=== PATIENT | female | born 1935 | race Caucasian/White ===

== ENCOUNTER → 2017-08-07 | Outpatient (CLI) | payer MEDICARE ==
--- NOTE | 2017-08-12 10:39 | RSPPFT ---
DATE OF PROCEDURE: 08/07/17 COMMENTS: Spirometry with FVC of 2.0 predicted 2.1, FEV1 of 1.7 predicted 1.5, FEV1/FVC ratio 83% predicted 81%. Lung volumes are also within the predicted range as well as the DLCO. IMPRESSION: On the basis of the above, patient has flow values, lung volumes and DLCO within the predicted range.
== END ==
LOC: HRSP 09:53
PROVIDERS: ATTEND Internal Medicine Pulmonary Disease
DX: J84.10 Pulmonary fibrosis, unspecified (principal)
CPT/HCPCS: 36600; 82805; 94060; 94618; 94726; 94729

== ENCOUNTER 2017-10-18 08:19 | Inpatient (IN) ==
[2017-10-18] MEDS ORDERED: Morphine Sulfate Inj 2 MG/ML Vial IV.PUSH ONE (08:59)
[2017-10-18 09:06] LABS: Baso # (Auto) 0.1 th/mm3 (0.0-0.2); Baso % (Auto) 0.6 % (0.0-2.0); Eos % (Auto) 0.3 % (0.0-4.0); Hematocrit 34.8 % (35.0-46.0); Hemoglobin 11.9 gm/dL (11.6-15.3); Lymph # (Auto) 0.8 th/mm3 (1.0-4.8); Lymph % (Auto) 7.8 % (9.0-44.0); Mean Corpuscular HGB Conc 34.3 % (32.0-36.0); Mean Corpuscular Hemoglobin 30.2 pg (27.0-34.0); Mean Corpuscular Volume 88.2 fL (80.0-100.0); Mean Platelet Volume 6.7 fL (7.0-11.0); Mono # (Auto) 0.4 th/mm3 (0.0-0.9); Mono % (Auto) 4.5 % (0.0-8.0); Neut # (Auto) 8.7 th/mm3 (1.8-7.7); Neut % (Auto) 86.8 % (16.0-70.0); Platelet Count 492 th/mm3 (150-450); Red Blood Count 3.94 mil/mm3 (4.00-5.30)
[2017-10-18 09:14] LABS: Activated Partial Thrombo Time 26.8 sec (24.3-30.1); INR 1.1 Ratio; Prothrombin Time 11.1 sec (9.8-11.6)
[2017-10-18 09:28] LABS: Albumin 3.3 g/dL (3.4-5.0); Anion Gap 5 meq/L (5-15); Aspartate Aminotransferase 23 U/L (15-37); Blood Urea Nitrogen 10 mg/dL (7-18); Calcium 8.5 mg/dL (8.5-10.1); Carbon Dioxide 28.7 meq/L (21.0-32.0); Chloride 101 meq/L (98-107); Glomerular Filtration Rate 73 mL/min (>89); Glucose,Random 112 mg/dL (74-106); Potassium 3.6 meq/L (3.5-5.1); Sodium 135 meq/L (136-145)
[2017-10-18 09:29] LABS: Alanine Aminotransferase 17 U/L (10-53)
[2017-10-18 09:32] LABS: Alkaline Phosphatase 86 U/L (45-117)
--- NOTE | 2017-10-18 09:36 | XR ---
EXAM DATE: 10/18/2017 9:33 AM EDT AGE/SEX: 81 years / Female INDICATIONS: Pain in entire ankle from fall with twisting motion. CLINICAL DATA: This is the patient's initial encounter. Patient reports that signs and symptoms have been present for 1 day and indicates a pain score of 4/10. MEDICAL/SURGICAL HISTORY: None. None. COMPARISON: No prior exams available for comparison. FINDINGS: Bony structures are intact and in normal alignment. Joints are intact without dislocation or signifi cant arthropathy. Osseous density is normal. Soft tissues are unremarkable. No radiopaque foreign bodies seen. CONCLUSION: 1. No acute fracture or dislocation. Electronically signed by: Jose Dawson MD 10/18/2017 9:35 AM EDT
--- NOTE | 2017-10-18 09:46 | XR ---
EXAM DATE: 10/18/2017 9:39 AM EDT AGE/SEX: 81 years / Female INDICATIONS: Pain in hip joint region from fall. CLINICAL DATA: This is the patient's initial encounter. Patient reports that signs and symptoms have been present for 1 day and indicates a pain score of 10/10. MEDICAL/SURGICAL HISTORY: None. None. COMPARISON: [facility], HIP RIGHT W AP PELVIS 2V, 10/18/2017. . FINDINGS: There is trabecular disruption and foreshortening of the femoral head at the trochanteric junction. R emaining visualized portions of the femur are intact. No significant suprapatellar joint effusion. Mo derate degenerative changes with grossly anatomic relationship at the hip and knee joints. Soft tissu es are unremarkable. IMPRESSION: 1. Findings concerning for nondisplaced transcervical femoral neck fracture. Electronically signed by: Jose Dawson MD 10/18/2017 9:45 AM EDT
--- NOTE | 2017-10-18 09:54 | XR ---
EXAM DATE: 10/18/2017 9:40 AM EDT AGE/SEX: 81 years / Female INDICATIONS: Pain from fall in hip joint region. CLINICAL DATA: This is the patient's initial encounter. Patient reports that signs and symptoms have been present for 1 day and indicates a pain score of 10/10. MEDICAL/SURGICAL HISTORY: None. None. COMPARISON: No prior exams available for comparison. FINDINGS: Examination reveals a mildly angulated and impacted intertrochanteric fracture of the right hip. The femoral head remains intact and normally situated in the acetabulum. No displaced pelvic fractures ap preciated. The contralateral left hip is grossly unremarkable. CONCLUSION: Intertrochanteric fracture of the right hip Electronically signed by: Kieran Muse MD 10/18/2017 9:52 AM EDT
--- NOTE | 2017-10-18 11:15 | ED ---
HPI General Chief complaint: Fall Stated complaint: right hip pain Time Seen by Provider: 10/18/17 08:35 Source: patient Mode of arrival: EMS Limitations: no limitations History of Present Illness HPI narrative: Patient is an 81-year-old female who is brought in by EMS after a fall today. She has been sleeping in her car, because she feels it is safe for because she has an alarm on her car. She says that when she got out of the car this morning she tripped and she fell onto her right side. She denies hitting her head. She denies any loss of consciousness. She denies any other injuries. She complains of pain just to her right hip. She has not been able to walk since then. Movement makes the pain worse. She has not had anything for pain yet. Severity is moderate. Related Data Home Medications Medication Instructions Recorded Confirmed levothyroxine 75 mcg PO DAILY 10/18/17 10/18/17 Allergies Allergy/AdvReac Type Severity Reaction Status Date / Time amoxicillin Allergy Anaphylaxis Verified 10/18/17 08:29 Penicillins Allergy Rash Verified 10/18/17 08:29 Review of Systems Except as stated in HPI: all other systems reviewed are negative Constitutional Denies chills and Denies fever(s) ENT Denies dizziness Cardiovascular Denies chest pain and Denies dyspnea Respiratory Denies cough Gastrointestinal Denies nausea and Denies vomiting Musculoskeletal Denies myalgias Integumentary/Breasts Denies change in pigmentation and Denies lesions Neurologic Denies focal weakness [facility] Medical History Medical History Hypothyroid (Acute) Lung mass (Acute) Social History Social History Substance History: No History of Abuse Second Hand Smoke Exposure: No Smoking Status: Never smoker How Often Do You Have a Drink Containing Alcohol: Never Recent Travel in [facility] within the Last 8 Weeks: No Recent Out of Country Travel within the Last 8 Weeks: No Immunization History Tetanus Immunization: Unsure Hx Influenza Vaccine This Season: Yes Exam Narrative Exam Narrative: GENERAL: Awake alert, no acute distress. SKIN: Focused skin assessment warm/dry. No wounds. HEAD: Atraumatic. Normocephalic. EYES: Pupils equal and round. No scleral icterus. Extraocular movements intact. ENT: Mucous membranes pink and moist. NECK: Trachea midline. No JVD. CARDIOVASCULAR: Regular rate and rhythm. No murmur appreciated. RESPIRATORY: No accessory muscle use. Clear to auscultation. Breath sounds equal bilaterally. GASTROINTESTINAL: Abdomen soft, non-tender, nondistended. MUSCULOSKELETAL: For many of the right hip. Tenderness to palpation of the right hip. Pain with movement of the right hip. Pedal pulses intact. NEUROLOGICAL: Awake and alert. No obvious cranial nerve deficits. Motor grossly within normal limits. Normal speech. PSYCHIATRIC: Appropriate mood and affect; insight and judgment normal. Course Initial Documented Vital Signs Pulse Rate 65 10/18/17 08:30 Respiratory Rate 16 10/18/17 08:30 Blood Pressure 193/75 H 10/18/17 08:30 Pulse Oximetry 97 10/18/17 08:30 Last Documented Vital Signs Pulse Rate 65 10/18/17 08:30 Respiratory Rate 14 10/18/17 10:31 Blood Pressure 193/75 H 10/18/17 08:30 Pulse Oximetry 97 10/18/17 08:30 Medical Decision Making [facility] Narrative Medical decision making narrative: Patient is an 81-year-old female who comes in after a fall today. She complains of right hip pain. There is obvious deformity of the hip on exam. X-ray performed shows a fracture of the right hip. I spoke with Dr. Nunez of orthopedics who advises admission to medicine, keep the patient n.p.o. She was given pain medicine. She will be admitted for further management. Differential Diagnosis Differential Diagnosis: Hip fracture versus sprain versus pelvic fracture versus femur fracture Medical Records Medical records reviewed: Yes I reviewed the patient's medical records. Lab Data Lab results reviewed: Yes I reviewed the patient's lab results. Result diagrams: 10/18/17 08:36 10/18/17 08:36 Lab Results 10/18/17 10/18/17 10/18/17 Range/Units 08:36 08:36 08:36 WBC 10.0 (4.0-11.0) th/mm3 RBC 3.94 L (4.00-5.30) mil/mm3 Hgb 11.9 (11.6-15.3) gm/dL Hct 34.8 L (35.0-46.0) % MCV 88.2 (80.0-100.0) fL MCH 30.2 (27.0-34.0) pg MCHC 34.3 (32.0-36.0) % RDW 13.0 (11.6-17.2) % Plt Count 492 H (150-450) th/mm3 MPV 6.7 L (7.0-11.0) fL Neut % (Auto) 86.8 H (16.0-70.0) % Lymph % (Auto) 7.8 L (9.0-44.0) % [place] % (Auto) 4.5 (0.0-8.0) % Eos % (Auto) 0.3 (0.0-4.0) % Baso % (Auto) 0.6 (0.0-2.0) % Neut # (Auto) 8.7 H (1.8-7.7) th/mm3 Lymph # (Auto) 0.8 L (1.0-4.8) th/mm3 [place] # (Auto) 0.4 (0.0-0.9) th/mm3 Eos # (Auto) 0.0 (0.0-0.4) th/mm3 Baso # (Auto) 0.1 (0.0-0.2) th/mm3 WBC Differential . Differential Comment Auto diff final PT 11.1 (9.8-11.6) sec INR 1.1 Ratio APTT 26.8 (24.3-30.1) sec Sodium 135 L (136-145) meq/L Potassium 3.6 (3.5-5.1) meq/L Chloride 101 (98-107) meq/L Carbon Dioxide 28.7 (21.0-32.0) meq/L Anion Gap 5 (5-15) meq/L BUN 10 (7-18) mg/dL Creatinine 0.76 (0.50-1.00) mg/dL Estimated GFR 73 L (>89) mL/min Random Glucose 112 H (74-106) mg/dL Calcium 8.5 (8.5-10.1) mg/dL Total Bilirubin 0.2 (0.2-1.0) mg/dL AST 23 (15-37) U/L ALT 17 (10-53) U/L Alkaline Phosphatase 86 (45-117) U/L Total Protein 8.0 (6.4-8.2) g/dL Albumin 3.3 L (3.4-5.0) g/dL Blood Type Blood Type Recheck Antibody Screen 10/18/17 Range/Units 08:36 WBC (4.0-11.0) th/mm3 RBC (4.00-5.30) mil/mm3 Hgb (11.6-15.3) gm/dL Hct (35.0-46.0) % MCV (80.0-100.0) fL MCH (27.0-34.0) pg MCHC (32.0-36.0) % RDW (11.6-17.2) % Plt Count (150-450) th/mm3 MPV (7.0-11.0) fL Neut % (Auto) (16.0-70.0) % Lymph % (Auto) (9.0-44.0) % [place] % (Auto) (0.0-8.0) % Eos % (Auto) (0.0-4.0) % Baso % (Auto) (0.0-2.0) % Neut # (Auto) (1.8-7.7) th/mm3 Lymph # (Auto) (1.0-4.8) th/mm3 [place] # (Auto) (0.0-0.9) th/mm3 Eos # (Auto) (0.0-0.4) th/mm3 Baso # (Auto) (0.0-0.2) th/mm3 WBC Differential Differential Comment PT (9.8-11.6) sec INR Ratio APTT (24.3-30.1) sec Sodium (136-145) meq/L Potassium (3.5-5.1) meq/L Chloride (98-107) meq/L Carbon Dioxide (21.0-32.0) meq/L Anion Gap (5-15) meq/L BUN (7-18) mg/dL Creatinine (0.50-1.00) mg/dL Estimated GFR (>89) mL/min Random Glucose (74-106) mg/dL Calcium (8.5-10.1) mg/dL Total Bilirubin (0.2-1.0) mg/dL AST (15-37) U/L ALT (10-53) U/L Alkaline Phosphatase (45-117) U/L Total Protein (6.4-8.2) g/dL Albumin (3.4-5.0) g/dL Blood Type O Negative Blood Type Recheck Required Antibody Screen Negative Imaging Data Radiologist's impression: Hip X-Ray 10/18/17 08:46 CONCLUSION: Intertrochanteric fracture of the right hip Ankle X-Ray 10/18/17 08:59 CONCLUSION: 1. No acute fracture or dislocation. Discharge Plan Discharge Disposition Patient Disposition: 30 Still Patient Discharge Condition Condition: Stable Physicians Team ED Provider: Chelsea Burnett Primary Care Provider: Lionel Mcnair Rxs /Orders / Referrals /Forms Prescriptions: No Action levothyroxine 75 mcg Tablet 75 mcg PO DAILY RF: 0 Status ED Status: Pending Admission
--- NOTE | 2017-10-18 11:47 | P.HP ---
<Yesi Galan W - Last Filed: 10/18/17 17:42> History of Present Illness Primary Care Physician: Lionel Mcnair Chief Complaint: hip pain after a fall History of Present Illness: This an 81-year-old female patient with past medical history which includes hypertension, chronic kidney disease stage 3, duodenal ulcer, orthostatic hypotension, pulmonary fibrosis and vitamin D deficiency. Patient was in her normal state of health today when she had a mechanical fall resulting in right hip pain. Imaging revealed a right hip intertrochanteric fracture. Patient report pain improved with IV pain medication. Patient offers no other complaints at this time. Patient denies nausea vomiting diarrhea constipation fevers chills cough congestion shortness of breath or chest pain. PMH: hypertension, chronic kidney disease stage 3, duodenal ulcer, orthostatic hypotension, pulmonary fibrosis and vitamin D deficiency PSxH; Cataract surgery, colonoscopy with polypectomy, EGD FMH: Colon cancer Social history: Denies current EtOH use Denies current tobacco use - Denies illicit drug use - Diagnosis (1) Intertrochanteric fracture of right hip Review of Systems All other systems reviewed negative except as stated in [facility] - History History Provided By: Patient - Medical History Medical History: Medical History (Last Updated 10/18/17 @ 14:55 by Dalton Merino MD) Hypertension Hypothyroid Kidney disease Lung mass Pulmonary fibrosis - Family History Family History: Family History (Last Updated 10/18/17 @ 14:54 by Dalton Merino MD) Other Family history non-contributory - Tobacco History Second Hand Smoke Exposure: No Tobacco Use In Past 30 Days: No Smoking Status: Never smoker - Alcohol History How Often Do You Have a Drink Containing Alcohol: Never - Substance Use History Substance History: No History of Abuse - Travel History Recent Travel in the [place] Within the Last 8 Weeks: No Recent Travel Out of the Country Within the Last 8 Weeks: No - Immunization History Tetanus Immunization: Unsure Hx Influenza Vaccine This Season: Yes Medications and Allergies Allergies Allergy/AdvReac Type Severity Reaction Status Date / Time amoxicillin Allergy Anaphylaxis Verified 10/18/17 08:29 Penicillins Allergy Rash Verified 10/18/17 08:29 Home Medications Medication Instructions Recorded Confirmed Type levothyroxine 75 mcg PO DAILY 10/18/17 10/18/17 History Exam Vital signs: Vital Signs 10/18/17 08:30 08/03/18 10:31 Pulse Rate 65 Respiratory Rate 16 14 Blood Pressure 193/75 H Pulse Oximetry 97 Intake & Output 10/17/17 10/18/17 10/18/17 18:59 06:59 18:59 Weight 49.442 kg Narrative: GENERAL: This is a thin frail elderly 81 year old female, well-developed patient , CARDIOVASCULAR: Regular rate and rhythm RESPIRATORY: Clear to auscultation. Breath sounds equal bilaterally. GASTROINTESTINAL: Abdomen soft, non-tender, nondistended. Normal active bowel sounds MUSCULOSKELETAL: Extremities without clubbing, cyanosis, or edema. RLE shortened and rotated NEURO: Alert & Oriented. Moves all ext x4 Results - Labs CBC & Chem 7: 10/18/17 08:36 10/18/17 08:36 Labs: Laboratory Results - last 24 hr 10/18/17 10/18/17 10/18/17 08:36 08:36 08:36 WBC 10.0 RBC 3.94 L Hgb 11.9 Hct 34.8 L MCV 88.2 MCH 30.2 MCHC 34.3 RDW 13.0 Plt Count 492 H MPV 6.7 L Neut % (Auto) 86.8 H Lymph % (Auto) 7.8 L [place] % (Auto) 4.5 Eos % (Auto) 0.3 Baso % (Auto) 0.6 Neut # (Auto) 8.7 H Lymph # (Auto) 0.8 L [place] # (Auto) 0.4 Eos # (Auto) 0.0 Baso # (Auto) 0.1 WBC Differential . Differential Comment Auto diff final PT 11.1 INR 1.1 APTT 26.8 Sodium 135 L Potassium 3.6 Chloride 101 Carbon Dioxide 28.7 Anion Gap 5 BUN 10 Creatinine 0.76 Estimated GFR 73 L Random Glucose 112 H Calcium 8.5 Total Bilirubin 0.2 AST 23 ALT 17 Alkaline Phosphatase 86 Total Protein 8.0 Albumin 3.3 L Blood Type Blood Type Recheck Antibody Screen 10/18/17 08:36 WBC RBC Hgb Hct MCV MCH MCHC RDW Plt Count MPV Neut % (Auto) Lymph % (Auto) [place] % (Auto) Eos % (Auto) Baso % (Auto) Neut # (Auto) Lymph # (Auto) [place] # (Auto) Eos # (Auto) Baso # (Auto) WBC Differential Differential Comment PT INR APTT Sodium Potassium Chloride Carbon Dioxide Anion Gap BUN Creatinine Estimated GFR Random Glucose Calcium Total Bilirubin AST ALT Alkaline Phosphatase Total Protein Albumin Blood Type O Negative Blood Type Recheck Required Antibody Screen Negative - Imaging Impressions Hip X-Ray 10/18/17 08:46 CONCLUSION: Intertrochanteric fracture of the right hip Ankle X-Ray 10/18/17 08:59 CONCLUSION: 1. No acute fracture or dislocation. Caprini VTE Risk Assessment Caprini VTE Risk Assessment: Moderate/High Risk (score >= 2) Caprini Risk Assessment Model: Point Value = 1 Point Value = 2 Point Value = 3 Point Value = 5 Age 41-60 Minor surgery BMI > 25 kg/m2 Swollen legs Varicose veins or History of unexplained or recurrent spontaneous Oral contraceptives or hormone replacement Sepsis (< 1 month) Serious lung disease, including pneumonia (< 1 month) Abnormal pulmonary function Acute myocardial infarction Congestive heart failure (< 1 month) History of inflammatory bowel disease Medical patient at bed rest Age 61-74 Arthroscopic surgery Major open surgery (> 45 min) Laparoscopic surgery (> 45 min) Malignancy Confined to bed (> 72 hours) Immobilizing plaster cast Central venous access Age >= 75 History of VTE Family history of VTE Factor V Leiden Prothrombin [id number] Lupus anticoagulant Anticardiolipin antibodies Elevated serum homocysteine Heparin-induced thrombocytopenia Other congenital or acquired thrombophilia Stroke (< 1 month) Elective arthroplasty Hip, pelvis, or leg fracture Acute spinal cord injury (< 1 month) Prophylaxis Regimen: Total Risk Factor Score Risk Level Prophylaxis Regimen 0-1 Low Early ambulation 2 Moderate Order ONE of the following: *Sequential Compression Device (SCD) *Heparin 5000 units SQ BID 3-4 Higher Order ONE of the following medications: *Heparin 5000 units SQ TID *Enoxaparin/Lovenox 40 mg SQ daily (WT < 150 kg, CrCl > 30 mL/min) *Enoxaparin/Lovenox 30 mg SQ daily (WT < 150 kg, CrCl > 10-29 mL/min) *Enoxaparin/Lovenox 30 mg SQ BID (WT < 150 kg, CrCl > 30 mL/min) AND/OR *Sequential Compression Device (SCD) 5 or more Highest Order ONE of the following medications: *Heparin 5000 units SQ TID (Preferred with Epidurals) *Enoxaparin/Lovenox 40 mg SQ daily (WT < 150 kg, CrCl > 30 mL/min) *Enoxaparin/Lovenox 30 mg SQ daily (WT < 150 kg, CrCl > 10-29 mL/min) *Enoxaparin/Lovenox 30 mg SQ BID (WT < 150 kg, CrCl > 30 mL/min) AND *Sequential Compression Device (SCD) Assessment and Plan - Assessment (1) Intertrochanteric fracture of right hip Code(s): S72.141A - Displaced intertrochanteric fracture of right femur, initial encounter for closed fracture Status: Acute Plan: Fall Right hip intertrochanteric fracture Hip X-Ray reviewed and reveals: Intertrochanteric fracture of the right hip Ankle X-Ray reviewed and reveals: No acute fracture or dislocation. Consult orthopedic surgery NPO Pain medication with morphine and tramadol Hypertension Not currently on medication for HTN as an outpatient continue low sodium diet monitor BP Hypothyroidism Continue home levothyroxine 75 mcg Pulmonary fibrosis Followed by Dr. Zhang as an outpatient Not on daily medication regiment or home oxygen DVT prophylaxis with SCDs, chemical DVT prophylaxis per orthopedic surgery <Serg Mcguire - Last Filed: 11/05/17 10:09> History of Present Illness Primary Care Physician: Lionel Mcnair - Diagnosis (1) Intertrochanteric fracture of right hip Inpatient Certification: I certify that the inpatient services were ordered in accordance with Medicare regulations governing the order. This includes certification that hospital inpatient services are reasonable and necessary and in the case of services not specified as inpatient-only under 42 CFR 419.22(n), that they are appropriately provided as inpatient services in accordance to with the 2-midnight benchmark under 43 CFR 412.3(e) [facility] - Medical History Medical History: Medical History (Last Updated 10/18/17 @ 14:55 by Dalton Merino MD) Hypertension Hypothyroid Kidney disease Lung mass Pulmonary fibrosis - Family History Family History: Family History (Last Updated 10/18/17 @ 14:54 by Dalton Merino MD) Other Family history non-contributory Results - Labs CBC & Chem 7: 10/21/17 05:32 10/21/17 05:32 Caprini VTE Risk Assessment Caprini Risk Assessment Model: Point Value = 1 Point Value = 2 Point Value = 3 Point Value = 5 Age 41-60 Minor surgery BMI > 25 kg/m2 Swollen legs Varicose veins or History of unexplained or recurrent spontaneous Oral contraceptives or hormone replacement Sepsis (< 1 month) Serious lung disease, including pneumonia (< 1 month) Abnormal pulmonary function Acute myocardial infarction Congestive heart failure (< 1 month) History of inflammatory bowel disease Medical patient at bed rest Age 61-74 Arthroscopic surgery Major open surgery (> 45 min) Laparoscopic surgery (> 45 min) Malignancy Confined to bed (> 72 hours) Immobilizing plaster cast Central venous access Age >= 75 History of VTE Family history of VTE Factor V Leiden Prothrombin [id number] Lupus anticoagulant Anticardiolipin antibodies Elevated serum homocysteine Heparin-induced thrombocytopenia Other congenital or acquired thrombophilia Stroke (< 1 month) Elective arthroplasty Hip, pelvis, or leg fracture Acute spinal cord injury (< 1 month) Prophylaxis Regimen: Total Risk Factor Score Risk Level Prophylaxis Regimen 0-1 Low Early ambulation 2 Moderate Order ONE of the following: *Sequential Compression Device (SCD) *Heparin 5000 units SQ BID 3-4 Higher Order ONE of the following medications: *Heparin 5000 units SQ TID *Enoxaparin/Lovenox 40 mg SQ daily (WT < 150 kg, CrCl > 30 mL/min) *Enoxaparin/Lovenox 30 mg SQ daily (WT < 150 kg, CrCl > 10-29 mL/min) *Enoxaparin/Lovenox 30 mg SQ BID (WT < 150 kg, CrCl > 30 mL/min) AND/OR *Sequential Compression Device (SCD) 5 or more Highest Order ONE of the following medications: *Heparin 5000 units SQ TID (Preferred with Epidurals) *Enoxaparin/Lovenox 40 mg SQ daily (WT < 150 kg, CrCl > 30 mL/min) *Enoxaparin/Lovenox 30 mg SQ daily (WT < 150 kg, CrCl > 10-29 mL/min) *Enoxaparin/Lovenox 30 mg SQ BID (WT < 150 kg, CrCl > 30 mL/min) AND *Sequential Compression Device (SCD) Assessment and Plan - Assessment (1) Intertrochanteric fracture of right hip Code(s): S72.141A - Displaced intertrochanteric fracture of right femur, initial encounter for closed fracture Status: Acute - Attending Attestation Patient examined. Assessment and plan formulated with Yesi MCFADDEN I agree with the above.
[2017-10-18] MEDS ORDERED: Morphine Sulfate Inj 2 MG/ML Vial IV.PUSH PRN (11:57)
[2017-10-18] MEDS ORDERED: Lidocaine PF 1% Inj 5 ML Syringe INFILTRATN ONE (12:00)
[2017-10-18] MEDS ORDERED: Labetalol HCl Inj 100 MG/20 ML Vial IV.CONT ONE (12:00)
[2017-10-18] MEDS ORDERED: Sod Chloride 0.9% Inj 1,000 ML IV.CONT SCH (12:00)
[2017-10-18] MEDS ORDERED: Clindamycin Inj 600 MG/4 ML Vial ONE (14:31)
[2017-10-18] MEDS ORDERED: Chlorhexidine Gluconate 2% 1 Pack (2 Cloths) TOPICAL SCH (15:00)
[2017-10-18] MEDS ORDERED: Sodium Chlor 0.9% Inj 500 ML IV.SIG SCH (15:00)
[2017-10-18] MEDS ORDERED: Metoprolol Tartrate 25 MG Tablet PO SCH (15:00)
--- NOTE | 2017-10-18 15:00 | P.CONOP ---
[facility] Orthopedics Consult Note - [facility] Consult date: 10/18/17 Consult reason: fracture Chief complaint: Hip fracture Narrative: This patient is an 81-year-old female who denies having previous problems with the right hip in the past. The patient had a mechanical fall after she had tripped. The patient noticed immediate pain about the right hip. She was unable to ambulate. She also did complain of ankle pain. She had x-rays done in the emergency room which were negative for the ankle. The patient was diagnosed with a right hip fracture from x-rays. She was admitted to the hospital. The patient complains of pain around the right groin and thigh region mostly. She denies pain in other areas. She says typically she was able to ambulate without assistive devices. She lives at home alone. Review of Systems A 12 point review of systems was reviewed and is negative unless as specified in the history of present illness. PMFSH - History History Provided By: Patient - Medical History Medical History: Medical History (Last Reviewed 10/18/17 @ 12:13 by Chelsea Burnett MD) Hypothyroid Lung mass - Family History Family History: Family History (Last Updated 10/18/17 @ 14:54 by Dalton Merino MD) Other Family history non-contributory - Tobacco History Second Hand Smoke Exposure: No Tobacco Use In Past 30 Days: No Smoking Status: Never smoker - Alcohol History How Often Do You Have a Drink Containing Alcohol: Never - Substance Use History Substance History: No History of Abuse - Travel History Recent Travel in the [place] Within the Last 8 Weeks: No Recent Travel Out of the Country Within the Last 8 Weeks: No - Immunization History Tetanus Immunization: Unsure Hx Influenza Vaccine This Season: Yes Medications and Allergies Active Medications: Active Medications Acetaminophen (Tylenol) 650 mg PO Q4H PRN PRN Reason: Temp > 100.4 Hydrocodone Bitart/Acetaminophen ([place] 5/325) 1 tab PO Q6H PRN PRN Reason: PAIN SCALE 1 TO 4/COUGH Al Hydroxide/Mg Hydroxide (Milk Of Magnesia Liq) 30 ml PO Q12H PRN PRN Reason: Mild Constipation Sodium Chloride (Ns Inj) 1,000 mls @ 75 mls/hr IV.CONT .[id number] DANDY Lactulose (Lactulose Liq) 30 ml PO DAILY PRN PRN Reason: SEVERE CONSITIPATION Levothyroxine Sodium (Synthroid) 75 mcg PO DAILY@0600 [facility] Morphine Sulfate (Morphine Inj) 2 mg IV.PUSH Q4H PRN PRN Reason: pain 5-10 Senna/Docusate Sodium (Blaire-Colace) 1 tab PO BID DANDY Allergies Allergy/AdvReac Type Severity Reaction Status Date / Time amoxicillin Allergy Anaphylaxis Verified 10/18/17 08:29 Penicillins Allergy Rash Verified 10/18/17 08:29 Home Medications Medication Instructions Recorded Confirmed Type levothyroxine 75 mcg PO DAILY 10/18/17 10/18/17 History Exam Vital signs: Vital Signs 10/18/17 08:30 10/18/17 10:31 10/18/17 12:00 Pulse Rate 65 70 Respiratory Rate 16 14 16 Blood Pressure 193/75 H 142/74 H Pulse Oximetry 97 98 Intake & Output 10/17/17 10/18/17 10/18/17 18:59 06:59 18:59 Weight 49.442 kg Narrative: GENERAL: The patient is awake, alert and oriented x3. The patient is no significant distress. PSYCHIATRIC: Normal affect, insight, and judgment. HEENT: Head is atraumatic. Oropharynx is moist. Extraocular muscles are intact. NECK: Non-tender and supple. LUNGS: No audible wheezing. He has normal inspiratory effort with no signs of dyspnea HEART: Regular rate and rhythm. ABDOMEN: Soft, nontender, and nondistended. BACK: No CVA tenderness. EXTREMITIES: The right leg is shortened and externally rotated. The skin is intact with no wounds. There is mild swelling. There is pain with any motion of the right leg. The bilateral knees have no swelling. She has 2+ dorsalis pedis pulse on the right foot. She moves the toes well on the bilateral feet. Results - Labs Result Diagrams: 10/18/17 08:36 10/18/17 08:36 Labs: Laboratory Results - last 24 hr 10/18/17 10/18/17 10/18/17 08:36 08:36 08:36 WBC 10.0 RBC 3.94 L Hgb 11.9 Hct 34.8 L MCV 88.2 MCH 30.2 MCHC 34.3 RDW 13.0 Plt Count 492 H MPV 6.7 L Neut % (Auto) 86.8 H Lymph % (Auto) 7.8 L Davison % (Auto) 4.5 Eos % (Auto) 0.3 Baso % (Auto) 0.6 Neut # (Auto) 8.7 H Lymph # (Auto) 0.8 L Davison # (Auto) 0.4 Eos # (Auto) 0.0 Baso # (Auto) 0.1 WBC Differential . Differential Comment Auto diff final PT 11.1 INR 1.1 APTT 26.8 Sodium 135 L Potassium 3.6 Chloride 101 Carbon Dioxide 28.7 Anion Gap 5 BUN 10 Creatinine 0.76 Estimated GFR 73 L Random Glucose 112 H Calcium 8.5 Total Bilirubin 0.2 AST 23 ALT 17 Alkaline Phosphatase 86 Total Protein 8.0 Albumin 3.3 L Blood Type Blood Type Recheck Antibody Screen 10/18/17 08:36 WBC RBC Hgb Hct MCV MCH MCHC RDW Plt Count MPV Neut % (Auto) Lymph % (Auto) Davison % (Auto) Eos % (Auto) Baso % (Auto) Neut # (Auto) Lymph # (Auto) Davison # (Auto) Eos # (Auto) Baso # (Auto) WBC Differential Differential Comment PT INR APTT Sodium Potassium Chloride Carbon Dioxide Anion Gap BUN Creatinine Estimated GFR Random Glucose Calcium Total Bilirubin AST ALT Alkaline Phosphatase Total Protein Albumin Blood Type O Negative Blood Type Recheck Required Antibody Screen Negative - Diagnostic results Imaging: Impressions Hip X-Ray 10/18/17 08:46 CONCLUSION: Intertrochanteric fracture of the right hip Ankle X-Ray 10/18/17 08:59 CONCLUSION: 1. No acute fracture or dislocation. I have reviewed the images for this radiology study. I agree with the interpretation given by the radiologist. Hip x-ray: report reviewed, image reviewed Ankle/Foot x-ray: report reviewed, image reviewed Assessment and Plan - Assessment and Plan Right hip displaced intertrochanteric fracture. We discussed the diagnosis in detail. This is a very serious condition for this patient's right hip. Nonoperative management will likely have a very poor outcome including inability to ambulate, potential for bedsores, pneumonia, blood clots, and . I do recommend urgent surgical management for this condition to consist of an open reduction and internal fixation of the right hip. She understands the risks of surgery include but not limited to injury to nerves, blood vessels, bleeding, infection, loss of range of motion of the hip, weakness of the hip, leg length discrepancy, DVT, pneumonia, stroke, heart attack, . The patient was to move forward with surgical management.
[2017-10-18] MEDS ORDERED: Tranexamic Acid Inj 1,000 MG/10 ML Ampul ONE (15:31)
[2017-10-18] MEDS ORDERED: Tranexamic Acid Inj 1,000 MG in Sodium Chlor 0.9% Inj 100 ML IV.SIG SCH (15:38)
[2017-10-18] MEDS ORDERED: Morphine Inj 4 MG/ML Vial IV.PUSH PRN (16:05)
[2017-10-18] MEDS ORDERED: Post-op Orders (for Pharmacy) OTHER STA (16:05)
[2017-10-18] MEDS ORDERED: Bisacodyl 10 MG Supp RECTAL PRN (16:05)
[2017-10-18] MEDS ORDERED: Aluminum/Magnesium/Simethacone Susp 30 ML UDC PO PRN (16:05)
--- NOTE | 2017-10-18 16:12 | XR ---
EXAM DATE: 10/18/2017 4:09 PM EDT AGE/SEX: 81 years / Female INDICATIONS: ORIF rt hip. CLINICAL DATA: This is the patient's subsequent encounter. Patient reports that signs and symptoms h ave been present for 1 day and indicates a pain score of Nonresponsive. MEDICAL/SURGICAL HISTORY: Non-responsive. Non-responsive. COMPARISON: No prior exams available for comparison. FINDINGS: 4 digital spot images of the right hip. Proximal femur fracture is seen with right-sided hip screw in place. Alignment is near-anatomic. CONCLUSION: Intraoperative images showing right-sided hip screw. Electronically signed by: Temo Gonzalez MD 10/18/2017 4:10 PM EDT
--- NOTE | 2017-10-18 16:15 | P.OP ---
- Preoperative Diagnosis (1) Intertrochanteric fracture of right hip Date of procedure: 10/18/17 Procedure: Right hip treatment of intertrochanteric fracture with intramedullary nail Anesthesia: LENIN Surgeon: Dalton Merino MD Payment Processor: AUDREY Vasquez The surgical procedure was assisted by my Advanced Registered Nurse Practitioner. My HIGHWAY ENGINEER presence was necessary throughout this case for the manipulation and positioning of the surgical extremity. My HIGHWAY ENGINEER was assisting me throughout the duration of this procedure. The skill set of an Advance Registered Nurse Practitioner was medically necessary to complete this procedure. During the surgical case, the surgical pathologist was working at the back table and the Advance Registered Nurse Practitioner was directly assisting me. Operation and Findings: Estimated blood loss: 200 cc Implants: Synthes short trochanteric nail, size: 10 x 130 with 85 mm helical blade The patient received intravenous clindamycin and vancomycin. After the appropriate anesthesia was administered, and the patient was transferred to the fracture table. The fracture was anatomically reduced under fluoroscopic imaging. The hip was prepped and draped in usual sterile fashion. We made incision just proximal to the tip of the greater trochanter. We dissected down through the deep fascia. We used a threaded guidewire at the tip of the greater trochanter which was placed down to the metaphyseal region on both the AP and lateral views. We reamed proximally. Using fluoroscopic analysis we templated the appropriate size for the short nail. This nail was then placed into position under fluoroscopic guidance. We made incision laterally based on the position of the associated jig. We then placed a threaded guidewire into the middle to inferior aspect of the femoral head. The appropriate length for the helical blade was measured. We drilled laterally and then step reamed the femoral neck and femoral head region. The helical blade was placed into position. We then tightened the proximal set screw, which was followed by releasing one turn off of the screw to allow for compression. Traction was released from the leg and then manual compression was performed. The nail was secured distally with a single screw off of the jig using fluoroscopic guidance. We took final fluoroscopic imaging which revealed that the fracture was in very good position. The hardware was in good position as well. The wounds were thoroughly irrigated and then closed with a 0 Vicryl followed by 2-0 Vicryl and johnnie. The postoperative plan is to start full weightbearing. Additionally, we will initiate postoperative antibiotics for 24 hours along with DVT prophylaxis consisting of early mobilization, SCDs, compression stockings, and Lovenox followed by aspirin.
[2017-10-18] MEDS ORDERED: fentaNYL Citrate Inj 100 MCG/2 ML Ampul ONE (16:30)
[2017-10-18] MEDS ORDERED: *Meperidine Inj 25 MG/ML Vial PERIprocedural Use ONLY ONE (16:45)
[2017-10-18] MEDS ORDERED: Senna/Docusate Sodium 8.6/50 MG Tablet PO SCH (21:00)
[2017-10-18] MEDS ORDERED: Zolpidem Tartrate 5 MG Tablet PO PRN (21:00)
[2017-10-18] MEDS: Multivitamin/Minerals Therapeutic Tablet PO SCH (23:11)
[2017-10-18] MEDS: Senna/Docusate Sodium 8.6/50 MG Tablet PO SCH (23:11)
[2017-10-18] MEDS: Clindamycin 600 mg/NS Premix 600 MG/50 ML PIGGYBACK IV.SIG SCH (23:13)
[2017-10-19] MEDS: Acetaminophen 325 MG Tablet PO PRN (02:26)
[2017-10-19] MEDS: Clindamycin 600 mg/NS Premix 600 MG/50 ML PIGGYBACK IV.SIG SCH ×3 (04:10→14:41)
[2017-10-19] MEDS: Levothyroxine 75 MCG Tablet PO SCH (06:44)
[2017-10-19 07:14] LABS: Baso # (Auto) 0.1 th/mm3 (0.0-0.2); Baso % (Auto) 0.6 % (0.0-2.0); Eos % (Auto) 0.1 % (0.0-4.0); Hematocrit 28.8 % (35.0-46.0); Hemoglobin 9.6 gm/dL (11.6-15.3); Lymph % (Auto) 17.4 % (9.0-44.0); Mean Corpuscular HGB Conc 33.4 % (32.0-36.0); Mean Corpuscular Hemoglobin 29.6 pg (27.0-34.0); Mean Corpuscular Volume 88.5 fL (80.0-100.0); Mono # (Auto) 0.8 th/mm3 (0.0-0.9); Mono % (Auto) 7.4 % (0.0-8.0); Neut # (Auto) 8.5 th/mm3 (1.8-7.7); Neut % (Auto) 74.5 % (16.0-70.0); Platelet Count 395 th/mm3 (150-450); Red Blood Count 3.25 mil/mm3 (4.00-5.30); Red Cell Distribution Width 13.2 % (11.6-17.2); White Blood Count 11.4 th/mm3 (4.0-11.0)
[2017-10-19 07:51] LABS: Calcium 8.2 mg/dL (8.5-10.1); Carbon Dioxide 28.1 meq/L (21.0-32.0); Potassium 4.7 meq/L (3.5-5.1)
[2017-10-19] MEDS: Multivitamin/Minerals Therapeutic Tablet PO SCH ×2 (08:21→21:28)
[2017-10-19] MEDS: Senna/Docusate Sodium 8.6/50 MG Tablet PO SCH ×2 (08:21→21:28)
--- NOTE | 2017-10-19 10:47 | P.PNOP ---
Subjective Interval history: Patient is OOB in chair with daughter at bedside. Patient reports mild to moderate pain to the right hip. Patient states pain is better than before surgery. Physical Exam Vital signs: Vital Signs 10/18/17 12:00 10/18/17 16:17 10/18/17 16:30 Temperature 97.7 F Pulse Rate 70 94 H 74 Respiratory Rate 16 20 15 Blood Pressure 142/74 H 187/88 H 138/62 Pulse Oximetry 98 98 100 10/18/17 16:45 10/18/17 16:55 10/18/17 17:00 Temperature 98 F Pulse Rate 73 66 Respiratory Rate 13 16 Blood Pressure 139/65 149/65 H Pulse Oximetry 99 100 100 10/18/17 17:38 10/18/17 20:00 10/19/17 00:00 Temperature 98.4 F 97.5 F L 97.5 F L Pulse Rate 66 71 72 Respiratory Rate 18 16 16 Blood Pressure 158/66 H 146/63 H 156/66 H Pulse Oximetry 99 97 96 10/19/17 02:15 10/19/17 04:00 10/19/17 08:00 Temperature 97.6 F 97.5 F L Pulse Rate 74 66 Respiratory Rate 15 17 18 Blood Pressure 148/65 H 130/60 Pulse Oximetry 94 L 93 L 10/19/17 09:00 Temperature Pulse Rate 70 Respiratory Rate Blood Pressure Pulse Oximetry Intake & Output 10/18/17 10/19/17 10/19/17 18:59 06:59 18:59 Intake Total 810 / 810 800 / 800 Output Total 20 20 / 20 Balance 790 / 790 780 / 780 Weight 49.442 kg 49.5 kg Intake: IV 110 / 110 100 / 100 Cleocin 600 mg/NS Premix 600 mg 100 / 100 In 50 ml @ 100 mls/hr IV.SIG Q6H DANDY Rx#:[id number] Cyklokapron Inj 1,000 MG In NS 110 / 110 Inj 100 ML @ 200 mls/hr IV.SIG ONCE DANDY Rx#:[id number] Anesthesia Amount 700 / 700 700 / 700 Output: Estimated Blood Loss 20 / 20 20 / 20 Other: # Voids 1 1 Date of Last Bowel Movement 10/16/17 10/16/17 Weight On Admission 49.442 kg Narrative: Dressings are C/D/I. EHL/TA/G intact. 2+ pedal pulse. Calf is soft and nontender. + SILT distally. Results - Labs CBC & Chem 7: 10/19/17 05:29 10/19/17 05:29 Laboratory Results - last 24 hr 10/19/17 10/19/17 05:29 05:29 WBC 11.4 H RBC 3.25 L Hgb 9.6 L D Hct 28.8 L MCV 88.5 MCH 29.6 MCHC 33.4 RDW 13.2 Plt Count 395 MPV 7.0 Neut % (Auto) 74.5 H Lymph % (Auto) 17.4 [place] % (Auto) 7.4 Eos % (Auto) 0.1 Baso % (Auto) 0.6 Neut # (Auto) 8.5 H Lymph # (Auto) 2.0 [place] # (Auto) 0.8 Eos # (Auto) 0.0 Baso # (Auto) 0.1 WBC Differential . Differential Comment Auto diff final Sodium 134 L Potassium 4.7 D Chloride 98 Carbon Dioxide 28.1 Anion Gap 8 BUN 7 Creatinine 0.66 Estimated GFR 86 L Random Glucose 95 Calcium 8.2 L - Imaging Impressions Hip X-Ray 10/18/17 00:00 CONCLUSION: Intraoperative images showing right-sided hip screw. Hip X-Ray 10/18/17 08:46 CONCLUSION: Intertrochanteric fracture of the right hip Ankle X-Ray 10/18/17 08:59 CONCLUSION: 1. No acute fracture or dislocation. Assessment and Plan - Assessment and Plan POD #1: Right hip IMN 1. WBAT RLE 2. Lovenox followed by ASA for DVT prophylaxis 3. Ice to the right hip PRN 4. Anticipatory discharge to SNF once medically cleared. 5. F/U in the office in 1-[address] Merino or AUDREY Olmos
--- NOTE | 2017-10-19 11:14 | P.PNIM ---
Subjective Interval history: Follow up hip fracture S/P Right hip treatment of intertrochanteric fracture with intramedullary nail (10/18/17) with Dr. Merino Patient reports right hip pain controlled with pain medication offers no other complaints at this time Physical Exam Vital signs: Vital Signs 10/18/17 12:00 10/18/17 16:17 10/18/17 16:30 Temperature 97.7 F Pulse Rate 70 94 H 74 Respiratory Rate 16 20 15 Blood Pressure 142/74 H 187/88 H 138/62 Pulse Oximetry 98 98 100 10/18/17 16:45 10/18/17 16:55 10/18/17 17:00 Temperature 98 F Pulse Rate 73 66 Respiratory Rate 13 16 Blood Pressure 139/65 149/65 H Pulse Oximetry 99 100 100 10/18/17 17:38 10/18/17 20:00 10/19/17 00:00 Temperature 98.4 F 97.5 F L 97.5 F L Pulse Rate 66 71 72 Respiratory Rate 18 16 16 Blood Pressure 158/66 H 146/63 H 156/66 H Pulse Oximetry 99 97 96 10/19/17 02:15 10/19/17 04:00 10/19/17 08:00 Temperature 97.6 F 97.5 F L Pulse Rate 74 66 Respiratory Rate 15 17 18 Blood Pressure 148/65 H 130/60 Pulse Oximetry 94 L 93 L 10/19/17 09:00 Temperature Pulse Rate 70 Respiratory Rate Blood Pressure Pulse Oximetry Intake & Output 10/18/17 10/19/17 10/19/17 18:59 06:59 18:59 Intake Total 810 / 810 800 / 800 Output Total 20 Balance 790 / 790 780 / 780 Weight 49.442 kg 49.5 kg Intake: IV 110 / 110 100 / 100 Cleocin 600 mg/NS Premix 600 mg 100 / 100 In 50 ml @ 100 mls/hr IV.SIG Q6H DANDY Rx#:[id number] Cyklokapron Inj 1,000 MG In NS 110 / 110 Inj 100 ML @ 200 mls/hr IV.SIG ONCE DANDY Rx#:[id number] Anesthesia Amount 700 / 700 700 / 700 Output: Estimated Blood Loss 20 / 20 20 / 20 Other: # Voids 1 1 Date of Last Bowel Movement 08/01/18 08/01/18 Weight On Admission 49.442 kg Narrative: GENERAL: This is a thin frail elderly 81 year old female, well-developed patient , CARDIOVASCULAR: Regular rate and rhythm RESPIRATORY: Clear to auscultation. Breath sounds equal bilaterally. GASTROINTESTINAL: Abdomen soft, non-tender, nondistended. Normal active bowel sounds MUSCULOSKELETAL: Extremities without clubbing, cyanosis, or edema. dressing right hip dry and intact NEURO: Alert & Oriented. Moves all ext x4 Results - Labs CBC & Chem 7: 10/21/17 05:32 10/21/17 05:32 Laboratory Results - last 24 hr 10/19/17 10/19/17 05:29 05:29 WBC 11.4 H RBC 3.25 L Hgb 9.6 L D Hct 28.8 L MCV 88.5 MCH 29.6 MCHC 33.4 RDW 13.2 Plt Count 395 MPV 7.0 Neut % (Auto) 74.5 H Lymph % (Auto) 17.4 Foster % (Auto) 7.4 Eos % (Auto) 0.1 Baso % (Auto) 0.6 Neut # (Auto) 8.5 H Lymph # (Auto) 2.0 Foster # (Auto) 0.8 Eos # (Auto) 0.0 Baso # (Auto) 0.1 WBC Differential . Differential Comment Auto diff final Sodium 134 L Potassium 4.7 D Chloride 98 Carbon Dioxide 28.1 Anion Gap 8 BUN 7 Creatinine 0.66 Estimated GFR 86 L Random Glucose 95 Calcium 8.2 L - Imaging Impressions Hip X-Ray 10/18/17 00:00 CONCLUSION: Intraoperative images showing right-sided hip screw. Assessment and Plan - Assessment (1) Intertrochanteric fracture of right hip Code(s): S72.141A - Displaced intertrochanteric fracture of right femur, initial encounter for closed fracture Status: Acute Plan: Fall Right hip intertrochanteric fracture Hip X-Ray reviewed and reveals: Intertrochanteric fracture of the right hip Ankle X-Ray reviewed and reveals: No acute fracture or dislocation. Consult orthopedic surgery patient S/P Right hip treatment of intertrochanteric fracture with intramedullary nail (10/18/17) with Dr. Merino Pain medication with morphine and tramadol WBAT RLE per orthopedic surgery hgb 9.6 today down from on admission likely dilutional as well as post - operative recheck CBC in AM Hypertension Not currently on medication for HTN as an outpatient continue low sodium diet monitor BP Hypothyroidism Continue home levothyroxine 75 mcg Pulmonary fibrosis Followed by Dr. Zhang as an outpatient Not on daily medication regiment or home oxygen DVT prophylaxis with SCDs, per orthopedic surgery Lovenox followed by ASA for DVT prophylaxis Plan to DC to SNF tomorrow if hgb and patient remain stable - Attending Attestation Patient examined. Assessment and plan formulated with Yesi Galan PA-C. I agree with the above.
--- NOTE | 2017-10-19 13:42 | P.DS ---
Addendum entered and electronically signed by SALIMA Rogel 14:34: Patient DC'd 10/21/17 she was kept an additional day due to confusion which improved Original Note: <Yesi Galan - Last Filed: 10/21/17 11:42> Date of admission: 10/18/17 12:17 Primary care physician: Lionel Mcnair Attending physician on discharge: Serg Mcguire Anticipated date of discharge: 10/20/17 Brief History from admission: This an 81-year-old female patient with past medical history which includes hypertension, chronic kidney disease stage 3, duodenal ulcer, orthostatic hypotension, pulmonary fibrosis and vitamin D deficiency. Patient was in her normal state of health today when she had a mechanical fall resulting in right hip pain. Imaging revealed a right hip intertrochanteric fracture. Patient report pain improved with IV pain medication. Patient offers no other complaints at this time. Patient denies nausea vomiting diarrhea constipation fevers chills cough congestion shortness of breath or chest pain. PMH: hypertension, chronic kidney disease stage 3, duodenal ulcer, orthostatic hypotension, pulmonary fibrosis and vitamin D deficiency PSxH; Cataract surgery, colonoscopy with polypectomy, EGD FMH: Colon cancer Social history: Denies current EtOH use Denies current tobacco use - Denies illicit drug use DS: Diagnosis - Discharge Diagnosis (1) Intertrochanteric fracture of right hip Status: Acute DS: Medications - Discharge Medications Prescriptions: aspirin 325 mg PO DAILY 30 Days #30 tab enoxaparin [Lovenox] 40 mg SUB-Q DAILY 10 Days #10 ml lorazepam [Ativan] 0.5 mg PO DAILY PRN #5 tab PRN Reason: Anxiety tramadol [Ultram] 50 mg PO Q6H PRN #60 tab PRN Reason: pain DS: Summary Hospital Course: Fall Right hip intertrochanteric fracture Hip X-Ray reviewed and reveals: Intertrochanteric fracture of the right hip Ankle X-Ray reviewed and reveals: No acute fracture or dislocation. Consult orthopedic surgery patient S/P Right hip treatment of intertrochanteric fracture with intramedullary nail (10/18/17) with Dr. Merino Pain medication with morphine and tramadol WBAT RLE per orthopedic surgery hgb 9.6 today down from on admission likely dilutional as well as post - operative recheck hgb 11.1 Patient became confused with [place]/Ultram. Patient now receiving Tylenol for pain mental status improving Hypertension Not currently on medication for HTN as an outpatient continue low sodium diet monitor BP Hypothyroidism Continue home levothyroxine 75 mcg Pulmonary fibrosis Followed by Dr. Zhang as an outpatient Not on daily medication regiment or home oxygen DVT prophylaxis with SCDs, per orthopedic surgery Lovenox followed by ASA for DVT prophylaxis - Time Spent with Patient Total time spent providing and/or coordinating discharge services: Greater than 30 minutes Exam Vital signs: Vital Signs 10/18/17 16:17 10/18/17 16:30 10/18/17 16:45 Temperature 97.7 F Pulse Rate 94 H 74 73 Respiratory Rate 20 15 13 Blood Pressure 187/88 H 138/62 139/65 Pulse Oximetry 98 100 99 10/18/17 16:55 10/18/17 17:00 10/18/17 17:38 Temperature 98 F 98.4 F Pulse Rate 66 66 Respiratory Rate 16 18 Blood Pressure 149/65 H 158/66 H Pulse Oximetry 100 100 99 10/18/17 20:00 10/19/17 00:00 10/19/17 02:15 Temperature 97.5 F L 97.5 F L Pulse Rate 71 72 Respiratory Rate 16 16 15 Blood Pressure 146/63 H 156/66 H Pulse Oximetry 97 96 10/19/17 04:00 10/19/17 08:00 10/19/17 09:00 Temperature 97.6 F 97.5 F L Pulse Rate 74 66 70 Respiratory Rate 17 18 Blood Pressure 148/65 H 130/60 Pulse Oximetry 94 L 93 L Intake & Output 10/18/17 10/19/17 10/19/17 18:59 06:59 18:59 Intake Total 810 / 810 800 / 800 Output Total 20 / 20 20 / 20 Balance 790 / 790 780 / 780 Weight 49.442 kg 49.5 kg Intake: IV 110 / 110 100 / 100 Cleocin 600 mg/NS Premix 600 mg 100 / 100 In 50 ml @ 100 mls/hr IV.SIG Q6H [facility] Rx#:[id number] Cyklokapron Inj 1,000 MG In NS 110 / 110 Inj 100 ML @ 200 mls/hr IV.SIG ONCE [facility] Rx#:[id number] Anesthesia Amount 700 / 700 700 / 700 Output: Estimated Blood Loss 20 / 20 20 / 20 Other: # Voids 1 1 Date of Last Bowel Movement 10/16/17 10/16/17 Weight On Admission 49.442 kg Narrative: GENERAL: This is a thin frail elderly 81 year old female, well-developed patient , CARDIOVASCULAR: Regular rate and rhythm RESPIRATORY: Clear to auscultation. Breath sounds equal bilaterally. GASTROINTESTINAL: Abdomen soft, non-tender, nondistended. Normal active bowel sounds MUSCULOSKELETAL: Extremities without clubbing, cyanosis, or edema. RLE shortened and rotated NEURO: Alert & Oriented. Moves all ext x4 Results Procedures completed during hospitalization: S/P Right hip treatment of intertrochanteric fracture with intramedullary nail ( 10/18/17) with Dr. Merino Labs on day of discharge: Labs from last 24 hours 10/19/17 10/19/17 05:29 05:29 WBC 11.4 H RBC 3.25 L Hgb 9.6 L D Hct 28.8 L MCV 88.5 MCH 29.6 MCHC 33.4 RDW 13.2 Plt Count 395 MPV 7.0 Neut % (Auto) 74.5 H Lymph % (Auto) 17.4 [place] % (Auto) 7.4 Eos % (Auto) 0.1 Baso % (Auto) 0.6 Neut # (Auto) 8.5 H Lymph # (Auto) 2.0 [place] # (Auto) 0.8 Eos # (Auto) 0.0 Baso # (Auto) 0.1 WBC Differential . Differential Comment Auto diff final Sodium 134 L Potassium 4.7 D Chloride 98 Carbon Dioxide 28.1 Anion Gap 8 BUN 7 Creatinine 0.66 Estimated GFR 86 L Random Glucose 95 Calcium 8.2 L - Impressions ITS Impressions Hip X-Ray 10/18/17 08:46 CONCLUSION: Intertrochanteric fracture of the right hip Ankle X-Ray 10/18/17 08:59 CONCLUSION: 1. No acute fracture or dislocation. <Ezio Márquez L - Last Filed: 10/21/17 18:25> Date of admission: 10/18/17 12:17 Primary care physician: Lionel Mcnair DS: Summary - Time Spent with Patient Total time spent providing and/or coordinating discharge services: Exam Vital signs: Vital Signs 10/20/17 19:15 10/20/17 20:00 10/21/17 00:15 Temperature 98 F 98.4 F Pulse Rate 101 H 95 H 92 H Respiratory Rate 18 18 Blood Pressure 110/72 119/56 L Pulse Oximetry 95 95 10/21/17 04:00 10/21/17 08:00 10/21/17 08:15 Temperature 98.6 F 97.6 F 98.2 F Pulse Rate 88 80 75 Respiratory Rate 18 16 18 Blood Pressure 112/69 124/59 L 114/88 Pulse Oximetry 96 96 10/21/17 08:53 10/21/17 08:56 10/21/17 12:00 Temperature 97.6 F Pulse Rate 71 88 Respiratory Rate 18 17 Blood Pressure 134/58 L Pulse Oximetry 98 10/21/17 16:00 Temperature 98.1 F Pulse Rate 86 Respiratory Rate 17 Blood Pressure 129/60 Pulse Oximetry 97 Intake & Output 10/20/17 10/21/17 10/21/17 18:59 06:59 18:59 Intake Total 1000 / 1000 700 / 700 Output Total 700 / 700 Balance 1000 / 1000 700 / 700 -700 / -700 Weight 49.5 kg Intake: IV 1000 / 1000 LR 1000 mL Inj 1,000 ML @ 80 1000 / 1000 mls/hr IV.CONT .[id number] [facility] Rx# :[id number] Oral 700 / 700 Output: Urine 700 / 700 Other: # Voids 3 Date of Last Bowel Movement 10/19/17 10/19/17 10/19/17 # Bowel Movements 1 Results Labs on day of discharge: Labs from last 24 hours 10/21/17 10/21/17 10/21/17 05:32 05:32 02:00 WBC 11.0 RBC 3.45 L Hgb 10.1 L Hct 30.1 L MCV 87.0 MCH 29.3 MCHC 33.7 RDW 13.0 Plt Count 358 MPV 7.7 Neut % (Auto) 72.8 H Lymph % (Auto) 17.0 [place] % (Auto) 8.9 H Eos % (Auto) 0.7 Baso % (Auto) 0.6 Neut # (Auto) 8.0 H Lymph # (Auto) 1.9 [place] # (Auto) 1.0 H Eos # (Auto) 0.1 Baso # (Auto) 0.1 WBC Differential . Differential Comment Auto diff final Sodium 133 L Potassium 4.1 Chloride 96 L Carbon Dioxide 29.0 Anion Gap 8 BUN 12 Creatinine 0.57 Estimated GFR Greater than 89 Random Glucose 97 Calcium 8.0 L Urine Color Yellow Urine Clarity Slightly cloudy Urine pH 7.0 Ur Specific [place] 1.018 Urine Protein 30 H Urine Glucose (UA) Negative Urine Ketones Negative Urine Occult Blood Trace H Urine Nitrate Negative Urine Bilirubin Negative Urine Urobilinogen 1.0 Ur Leukocyte Esterase Negative Urine RBC 4-15 H Urine WBC 0-5 Ur Squamous Epith Cells 0-5 Ur Renal Epithelial Cell 1-5 H Amorphous Sediment Moderate H Urine Bacteria Rare H Urine Mucus Few H Micro UA Comment Culture not ind Urine Culture Comments Culture not ind - Impressions ITS Impressions Hip X-Ray 10/18/17 08:46 CONCLUSION: Intertrochanteric fracture of the right hip Ankle X-Ray 10/18/17 08:59 CONCLUSION: 1. No acute fracture or dislocation. Chest X-Ray 10/20/17 10:06 CONCLUSION: Bilateral apical pleural thickening with interstitial prominence. Findings are likely secondary to emphysematous changes and scarring. No evidence of pneumonia. Discharge Plan - Discharge Order Discharge Orders: Discharge Order (Routine); Ordered 10/21/17 Ordered By: Yesi Galan - Discharge Details Anticipated Discharge Date: 10/21/17 - Physicians Team Primary Care Provider: Lionel Mcnair Attending Provider: Serg Mcguire Other Providers: Dalton Merino MD
--- NOTE | 2017-10-19 14:24 | ECG ---
Date Performed: 10/18/2017 Time Performed: 14:01:34 PTAGE: 81 years EKG: Sinus rhythm POSSIBLE LEFT ATRIAL ENLARGEMENT SEPTAL MYOCARDIAL INFARCTION ABNORMAL ECG Since the PREVIOUS TRACING , no significant change noted DOCTOR: Riana Campa Interpretating Date/Time 10/19/2017 14:23:14
[2017-10-19] MEDS: Enoxaparin Inj 40 MG/0.4 ML Syringe SQ SCH (15:52)
[2017-10-20] MEDS: Levothyroxine 75 MCG Tablet PO SCH (06:45)
[2017-10-20 08:13] LABS: Baso % (Auto) 0.3 % (0.0-2.0); Hematocrit 33.1 % (35.0-46.0); Hemoglobin 11.1 gm/dL (11.6-15.3); Lymph # (Auto) 0.9 th/mm3 (1.0-4.8); Mean Corpuscular HGB Conc 33.6 % (32.0-36.0); Mean Corpuscular Hemoglobin 29.4 pg (27.0-34.0); Mean Corpuscular Volume 87.7 fL (80.0-100.0); Mean Platelet Volume 6.9 fL (7.0-11.0); Mono # (Auto) 0.9 th/mm3 (0.0-0.9); Mono % (Auto) 6.1 % (0.0-8.0); Neut # (Auto) 13.1 th/mm3 (1.8-7.7); Neut % (Auto) 87.6 % (16.0-70.0); Platelet Count 371 th/mm3 (150-450); Red Blood Count 3.78 mil/mm3 (4.00-5.30); Red Cell Distribution Width 13.3 % (11.6-17.2)
[2017-10-20 08:31] LABS: Anion Gap 7 meq/L (5-15); Blood Urea Nitrogen 9 mg/dL (7-18); Calcium 8.3 mg/dL (8.5-10.1); Chloride 97 meq/L (98-107); Glomerular Filtration Rate Greater Than 89 mL/min (>89); Glucose,Random 103 mg/dL (74-106); Potassium 4.1 meq/L (3.5-5.1); Sodium 133 meq/L (136-145)
[2017-10-20] MEDS: Senna/Docusate Sodium 8.6/50 MG Tablet PO SCH ×2 (08:51→20:57)
[2017-10-20] MEDS: Multivitamin/Minerals Therapeutic Tablet PO SCH ×2 (08:51→20:57)
--- NOTE | 2017-10-20 08:54 | P.PNOP ---
Subjective Interval history: Patient reports mild to moderate right hip pain. Physical Exam Vital signs: Vital Signs 10/19/17 09:00 10/19/17 12:00 10/19/17 12:53 Temperature 97.5 F L Pulse Rate 70 67 Respiratory Rate 18 18 Blood Pressure 143/66 H Pulse Oximetry 98 10/19/17 16:00 10/19/17 20:00 10/20/17 00:00 Temperature 98.5 F 99.3 F 99.5 F Pulse Rate 79 86 83 Respiratory Rate 20 18 18 Blood Pressure 142/61 H 127/59 L 143/67 H Pulse Oximetry 94 L 95 96 10/20/17 00:07 10/20/17 04:00 10/20/17 05:15 Temperature 98.5 F 97.4 F L Pulse Rate 74 100 H 100 H Respiratory Rate 18 18 Blood Pressure 129/68 125/58 L Pulse Oximetry 95 94 L 10/20/17 06:15 10/20/17 07:15 Temperature 97.6 F 97.8 F Pulse Rate 90 95 H Respiratory Rate 18 18 Blood Pressure 130/60 138/60 Pulse Oximetry 95 99 Intake & Output 10/19/17 10/20/17 10/20/17 18:59 06:59 18:59 Intake Total 50 / 50 500 / 500 Balance 50 / 50 500 / 500 Intake: IV 50 / 50 50 / 50 Cleocin 600 mg/NS Premix 600 mg 50 / 50 In 50 ml @ 100 mls/hr IV.SIG Q6H [facility] Rx#:[id number] Oral 450 / 450 Other: # Voids 4 2 Date of Last Bowel Movement 10/19/17 10/19/17 # Bowel Movements 1 Narrative: Dressings are C/D/I. EHL/TA/G intact. 2+ pedal pulse. Calf is soft and nontender. + SILT distally. - Constitutional no acute distress - Routine HEENT Exam Head: Present: normocephalic, atraumatic Eye: Present: EOMI ENT: Present: mucous membranes moist - Routine Skin Exam Present: dry, warm - Detailed Neurological Exam: Coma Scale Eye Opening: Spontaneous Verbal Response: Confused Motor Response: Obey commands Dejuan Coma Scale Total: 14 - Routine Psychiatric Exam Present: normal affect Results - Labs CBC & Chem 7: 10/20/17 07:50 10/20/17 07:50 Laboratory Results - last 24 hr 10/20/17 10/20/17 07:50 07:50 WBC 15.0 H RBC 3.78 L Hgb 11.1 L Hct 33.1 L MCV 87.7 MCH 29.4 MCHC 33.6 RDW 13.3 Plt Count 371 MPV 6.9 L Neut % (Auto) 87.6 H Lymph % (Auto) 6.0 L [place] % (Auto) 6.1 Eos % (Auto) 0.0 Baso % (Auto) 0.3 Neut # (Auto) 13.1 H Lymph # (Auto) 0.9 L [place] # (Auto) 0.9 Eos # (Auto) 0.0 Baso # (Auto) 0.0 WBC Differential . Differential Comment Auto diff final Sodium 133 L Potassium 4.1 Chloride 97 L Carbon Dioxide 29.0 Anion Gap 7 BUN 9 Creatinine 0.60 Estimated GFR Greater than 89 Random Glucose 103 Calcium 8.3 L - Procedures S/P Right hip treatment of intertrochanteric fracture with intramedullary nail ( 10/18/17) with Dr. Merino Assessment and Plan - Assessment and Plan POD #2: Right hip IMN 1. WBAT RLE 2. Lovenox followed by ASA for DVT prophylaxis 3. Ice to the right hip PRN 4. Anticipatory discharge to SNF once medically cleared. 5. F/U in the office in 1-[address] Merino or AUDREY Olmos
--- NOTE | 2017-10-20 10:46 | XR ---
EXAM DATE: 10/20/2017 10:42 AM EDT AGE/SEX: 81 years / Female INDICATIONS: Cough. CLINICAL DATA: This is the patient's initial encounter. Patient reports that signs and symptoms have been present for 1 day and indicates a pain score of 0/10. MEDICAL/SURGICAL HISTORY: None. . ORIF right hip. COMPARISON: No prior exams available for comparison. FINDINGS: AP upright portable view of the chest demonstrates bilateral apical pleural thickening and interstiti al prominence. The lungs appear adequately inflated without evidence of airspace consolidation or mas s. Heart size is normal. Pulmonary vasculature is normal. Osseous structures are unremarkable. CONCLUSION: Bilateral apical pleural thickening with interstitial prominence. Findings are likely secondary to em physematous changes and scarring. No evidence of pneumonia. Electronically signed by: Donna Poe MD 10/20/2017 10:44 AM EDT
--- NOTE | 2017-10-20 10:51 | P.PNIM ---
Subjective Interval history: Follow up hip fracture S/P Right hip treatment of intertrochanteric fracture with intramedullary nail (10/18/17) with Dr. Merino Patient reports right hip pain controlled with pain medication Per RN patient is confused oriented to person only tried to get out of bed unassisted and fell -> sustained a skin tear on arm patient is A&O x 3 with periods of confusion Physical Exam Vital signs: Vital Signs 10/19/17 12:00 10/19/17 12:53 10/19/17 16:00 Temperature 97.5 F L 98.5 F Pulse Rate 67 79 Respiratory Rate 18 18 20 Blood Pressure 143/66 H 142/61 H Pulse Oximetry 98 94 L 10/19/17 20:00 10/20/17 00:00 10/20/17 00:07 Temperature 99.3 F 99.5 F Pulse Rate 86 83 74 Respiratory Rate 18 18 Blood Pressure 127/59 L 143/67 H Pulse Oximetry 95 96 10/20/17 04:00 10/20/17 05:15 10/20/17 06:15 Temperature 98.5 F 97.4 F L 97.6 F Pulse Rate 100 H 100 H 90 Respiratory Rate 18 18 18 Blood Pressure 129/68 125/58 L 130/60 Pulse Oximetry 95 94 L 95 10/20/17 07:15 10/20/17 08:15 10/20/17 09:00 Temperature 97.8 F 97.9 F Pulse Rate 95 H 98 H 97 H Respiratory Rate 18 18 Blood Pressure 138/60 132/63 Pulse Oximetry 99 97 Intake & Output 10/19/17 10/20/17 10/20/17 18:59 06:59 18:59 Intake Total 50 / 50 500 / 500 1000 / 1000 Balance 50 / 50 500 / 500 1000 / 1000 Intake: IV 50 / 50 50 / 50 1000 / 1000 LR 1000 mL Inj 1,000 ML @ 80 1000 / 1000 mls/hr IV.CONT .[id number] [facility] Rx# :[id number] Cleocin 600 mg/NS Premix 600 mg 50 / 50 In 50 ml @ 100 mls/hr IV.SIG Q6H [facility] Rx#:[id number] Oral 450 / 450 Other: # Voids 4 2 Date of Last Bowel Movement 10/19/17 10/19/17 10/19/17 # Bowel Movements 1 Narrative: GENERAL: This is a thin frail elderly 81 year old female, well-developed patient , confused oriented to person only CARDIOVASCULAR: Regular rate and rhythm RESPIRATORY: Clear to auscultation. Breath sounds equal bilaterally. GASTROINTESTINAL: Abdomen soft, non-tender, nondistended. Normal active bowel sounds MUSCULOSKELETAL: Extremities without clubbing, cyanosis, or edema. dressing right hip dry and intact NEURO: A&O x 3 with periods of confused. Moves all ext x4 Results - Labs CBC & Chem 7: 10/21/17 05:32 10/21/17 05:32 Laboratory Results - last 24 hr 10/20/17 10/20/17 07:50 07:50 WBC 15.0 H RBC 3.78 L Hgb 11.1 L Hct 33.1 L MCV 87.7 MCH 29.4 MCHC 33.6 RDW 13.3 Plt Count 371 MPV 6.9 L Neut % (Auto) 87.6 H Lymph % (Auto) 6.0 L [place] % (Auto) 6.1 Eos % (Auto) 0.0 Baso % (Auto) 0.3 Neut # (Auto) 13.1 H Lymph # (Auto) 0.9 L [place] # (Auto) 0.9 Eos # (Auto) 0.0 Baso # (Auto) 0.0 WBC Differential . Differential Comment Auto diff final Sodium 133 L Potassium 4.1 Chloride 97 L Carbon Dioxide 29.0 Anion Gap 7 BUN 9 Creatinine 0.60 Estimated GFR Greater than 89 Random Glucose 103 Calcium 8.3 L - Imaging Impressions Chest X-Ray 10/20/17 10:06 CONCLUSION: Bilateral apical pleural thickening with interstitial prominence. Findings are likely secondary to emphysematous changes and scarring. No evidence of pneumonia. - Procedures S/P Right hip treatment of intertrochanteric fracture with intramedullary nail ( 10/18/17) with Dr. Merino Assessment and Plan - Assessment (1) Intertrochanteric fracture of right hip Code(s): S72.141A - Displaced intertrochanteric fracture of right femur, initial encounter for closed fracture Status: Acute Plan: Fall Right hip intertrochanteric fracture Hip X-Ray reviewed and reveals: Intertrochanteric fracture of the right hip Ankle X-Ray reviewed and reveals: No acute fracture or dislocation. Consult orthopedic surgery patient S/P Right hip treatment of intertrochanteric fracture with intramedullary nail (10/18/17) with Dr. Merino Pain medication with morphine and tramadol WBAT RLE per orthopedic surgery hgb 9.6 today down from on admission likely dilutional as well as post - operative recheck CBC (10/20) -> hgb 11.1 AMS Fall Per RN patient is confused oriented to person only tried to get out of bed unassisted and fell -> sustained a skin tear on arm Patient was confused prior to the fall no LOC or head trauma patient remains confused orient to self only, thinks she is in a care home and wants to go home AMS could be from underlining cognitive decline worsened by narcotics and hospitalization or possibly withdraw give Ativan 1 mg IM x 1 now start CIWA protocol Hypertension Not currently on medication for HTN as an outpatient continue low sodium diet monitor BP Hypothyroidism Continue home levothyroxine 75 mcg Pulmonary fibrosis Followed by Dr. Zhang as an outpatient Not on daily medication regiment or home oxygen Leukocytosis WBC elevated today 15.0 patient afebrile CXR: Bilateral apical pleural thickening with interstitial prominence. Findings are likely secondary to emphysematous changes and scarring. No evidence of pneumonia. UA C&S requested post op dressing appears clean and dry recheck CBC at 1300 ? lab error DVT prophylaxis with SCDs, per orthopedic surgery Lovenox followed by ASA for DVT prophylaxis Plan to DC to SNF tomorrow - Attending Attestation Patient examined. Assessment and plan formulated with Yesi Galan PA-C. I agree with the above.
[2017-10-20] MEDS ORDERED: LORazepam 1 MG Tablet PO PRN (12:00)
[2017-10-20] MEDS: Enoxaparin Inj 40 MG/0.4 ML Syringe SQ SCH (16:12)
[2017-10-21 03:24] LABS: Bilirubin,Urine Negative (Negative); Clarity,Urine Slightly Cloudy (Clear); Color,Urine Yellow (Yellw/Straw); Glucose,Urine (UA) Negative (Negative); Leukocyte Esterase,Urine Negative (Negative); Nitrite,Urine Negative (Negative)
[2017-10-21 03:26] LABS: Specific Gravity,Urine 1.018 (1.002-1.035)
[2017-10-21 03:35] LABS: Squamous Epithelial Cell,Urine 0-5 /hpf (0-5); WBC,Urine 0-5 /hpf (0-5)
[2017-10-21 03:36] LABS: Amorphous Sediment,Urine Moderate /hpf; Bacteria,Urine Rare /hpf; Mucus,Urine Few /lpf (Occasional)
[2017-10-21 06:17] LABS: Baso # (Auto) 0.1 th/mm3 (0.0-0.2); Baso % (Auto) 0.6 % (0.0-2.0); Eos # (Auto) 0.1 th/mm3 (0.0-0.4); Eos % (Auto) 0.7 % (0.0-4.0); Hematocrit 30.1 % (35.0-46.0); Hemoglobin 10.1 gm/dL (11.6-15.3); Lymph # (Auto) 1.9 th/mm3 (1.0-4.8); Mean Corpuscular HGB Conc 33.7 % (32.0-36.0); Mean Corpuscular Hemoglobin 29.3 pg (27.0-34.0); Mean Platelet Volume 7.7 fL (7.0-11.0); Mono % (Auto) 8.9 % (0.0-8.0); Neut % (Auto) 72.8 % (16.0-70.0); Platelet Count 358 th/mm3 (150-450); Red Blood Count 3.45 mil/mm3 (4.00-5.30)
[2017-10-21] MEDS: Levothyroxine 75 MCG Tablet PO SCH (06:23)
[2017-10-21 06:46] LABS: Anion Gap 8 meq/L (5-15); Blood Urea Nitrogen 12 mg/dL (7-18); Chloride 96 meq/L (98-107); Glomerular Filtration Rate Greater Than 89 mL/min (>89); Glucose,Random 97 mg/dL (74-106); Potassium 4.1 meq/L (3.5-5.1); Sodium 133 meq/L (136-145)
[2017-10-21] MEDS: Multivitamin/Minerals Therapeutic Tablet PO SCH ×2 (08:13→23:39)
[2017-10-21] MEDS: Senna/Docusate Sodium 8.6/50 MG Tablet PO SCH ×2 (08:13→23:39)
[2017-10-21] MEDS: Acetaminophen 325 MG Tablet PO PRN ×2 (08:13→11:50)
--- NOTE | 2017-10-21 14:09 | P.PNOP ---
Subjective Interval history: The patient is out of bed in chair eating lunch. The patient reports intermittent discomfort to the right hip. Overall pain is mild. Confusion is better today compared to yesterday's visit. Patient is more appropriate with questioning. Physical Exam Vital signs: Vital Signs 10/20/17 15:45 10/20/17 15:59 10/20/17 16:00 Temperature 99.0 F Pulse Rate 100 H 99 H Respiratory Rate 18 20 Blood Pressure 115/58 L Pulse Oximetry 94 L 10/20/17 16:15 10/20/17 19:15 10/20/17 20:00 Temperature 98.2 F 98 F Pulse Rate 104 H 101 H 95 H Respiratory Rate 17 18 Blood Pressure 126/57 L 110/72 Pulse Oximetry 95 95 10/21/17 00:15 10/21/17 04:00 10/21/17 08:00 Temperature 98.4 F 98.6 F 97.6 F Pulse Rate 92 H 88 80 Respiratory Rate 18 18 16 Blood Pressure 119/56 L 112/69 124/59 L Pulse Oximetry 95 96 96 10/21/17 08:15 10/21/17 08:53 10/21/17 08:56 Temperature 98.2 F Pulse Rate 75 71 Respiratory Rate 18 18 Blood Pressure 114/88 Pulse Oximetry 10/21/17 12:00 Temperature 97.6 F Pulse Rate 88 Respiratory Rate 17 Blood Pressure 134/58 L Pulse Oximetry 98 Intake & Output 10/20/17 10/21/17 10/21/17 18:59 06:59 18:59 Intake Total 1000 / 1000 700 / 700 Balance 1000 / 1000 700 / 700 Weight 49.5 kg Intake: IV 1000 / 1000 LR 1000 mL Inj 1,000 ML @ 80 1000 / 1000 mls/hr IV.CONT .[id number] [facility] Rx# :[id number] Oral 700 / 700 Other: # Voids 3 Date of Last Bowel Movement 10/19/17 10/19/17 10/19/17 Narrative: The patient's dressings are clean, dry, and intact. EHL/TA/G are intact. 2+ pedal pulse. The patient's calf is soft and nontender. Sensation is intact to light touch distally. Minimal swelling to the right lower extremity. Results - Labs CBC & Chem 7: 10/21/17 05:32 10/21/17 05:32 Laboratory Results - last 24 hr 10/21/17 10/21/17 10/21/17 02:00 05:32 05:32 WBC 11.0 RBC 3.45 L Hgb 10.1 L Hct 30.1 L MCV 87.0 MCH 29.3 MCHC 33.7 RDW 13.0 Plt Count 358 MPV 7.7 Neut % (Auto) 72.8 H Lymph % (Auto) 17.0 [place] % (Auto) 8.9 H Eos % (Auto) 0.7 Baso % (Auto) 0.6 Neut # (Auto) 8.0 H Lymph # (Auto) 1.9 [place] # (Auto) 1.0 H Eos # (Auto) 0.1 Baso # (Auto) 0.1 WBC Differential . Differential Comment Auto diff final Sodium 133 L Potassium 4.1 Chloride 96 L Carbon Dioxide 29.0 Anion Gap 8 BUN 12 Creatinine 0.57 Estimated GFR Greater than 89 Random Glucose 97 Calcium 8.0 L Urine Color Yellow Urine Clarity Slightly cloudy Urine pH 7.0 Ur Specific [place] 1.018 Urine Protein 30 H Urine Glucose (UA) Negative Urine Ketones Negative Urine Occult Blood Trace H Urine Nitrate Negative Urine Bilirubin Negative Urine Urobilinogen 1.0 Ur Leukocyte Esterase Negative Urine RBC 4-15 H Urine WBC 0-5 Ur Squamous Epith Cells 0-5 Ur Renal Epithelial Cell 1-5 H Amorphous Sediment Moderate H Urine Bacteria Rare H Urine Mucus Few H Micro UA Comment Culture not ind Urine Culture Comments Culture not ind - Imaging Impressions Hip X-Ray 10/18/17 00:00 CONCLUSION: Intraoperative images showing right-sided hip screw. - Procedures S/P Right hip treatment of intertrochanteric fracture with intramedullary nail ( 10/18/17) with Dr. Merino Assessment and Plan - Assessment and Plan POD #3: Right hip IMN 1. WBAT RLE 2. Lovenox followed by ASA for DVT prophylaxis 3. Ice to the right hip PRN 4. Anticipatory discharge to SNF once medically cleared. Stable per orthopedics for discharge. 5. F/U in the office in 1-[address] Merino or AUDREY Olmos
[2017-10-21] MEDS: Enoxaparin Inj 40 MG/0.4 ML Syringe SQ SCH (15:06)
[2017-10-22] MEDS: Acetaminophen 325 MG Tablet PO PRN (00:01)
[2017-10-22] MEDS: Levothyroxine 75 MCG Tablet PO SCH (05:50)
[2017-10-22] MEDS: Senna/Docusate Sodium 8.6/50 MG Tablet PO SCH (09:22)
[2017-10-22] MEDS: Multivitamin/Minerals Therapeutic Tablet PO SCH (09:22)
--- NOTE | 2017-10-22 10:47 | P.PNIM ---
Subjective Interval history: Follow up hip fracture S/P Right hip treatment of intertrochanteric fracture with intramedullary nail (10/18/17) with Dr. Merino Patient reports right hip pain has improved A&O today Physical Exam Vital signs: Vital Signs 10/21/17 12:00 10/21/17 16:00 10/21/17 20:00 Temperature 97.6 F 98.1 F 98.3 F Pulse Rate 88 86 85 Respiratory Rate 17 17 18 Blood Pressure 134/58 L 129/60 134/60 Pulse Oximetry 98 97 95 10/22/17 00:00 10/22/17 08:00 Temperature 97.9 F 97.8 F Pulse Rate 90 79 Respiratory Rate 18 18 Blood Pressure 116/56 L 128/59 L Pulse Oximetry 97 97 Intake & Output 10/21/17 10/22/17 10/22/17 18:59 06:59 18:59 Output Total 700 / 700 900 / 900 Balance -700 / -700 -900 / -900 Output: Urine 700 / 700 900 / 900 Other: Date of Last Bowel Movement 10/19/17 10/21/17 # Bowel Movements 1 Narrative: GENERAL: This is a thin frail elderly 81 year old female, well-developed patient , confused oriented to person only CARDIOVASCULAR: Regular rate and rhythm RESPIRATORY: Clear to auscultation. Breath sounds equal bilaterally. GASTROINTESTINAL: Abdomen soft, non-tender, nondistended. Normal active bowel sounds MUSCULOSKELETAL: Extremities without clubbing, cyanosis, or edema. dressing right hip dry and intact NEURO: A&O. Moves all ext x4 Results - Labs CBC & Chem 7: 10/21/17 05:32 10/21/17 05:32 - Procedures S/P Right hip treatment of intertrochanteric fracture with intramedullary nail ( 10/18/17) with Dr. Merino Assessment and Plan - Assessment (1) Intertrochanteric fracture of right hip Code(s): S72.141A - Displaced intertrochanteric fracture of right femur, initial encounter for closed fracture Status: Acute Plan: Fall Right hip intertrochanteric fracture Hip X-Ray reviewed and reveals: Intertrochanteric fracture of the right hip Ankle X-Ray reviewed and reveals: No acute fracture or dislocation. Consult orthopedic surgery patient S/P Right hip treatment of intertrochanteric fracture with intramedullary nail (10/18/17) with Dr. Merino Pain medication with morphine and tramadol WBAT RLE per orthopedic surgery hgb 9.6 today down from on admission likely dilutional as well as post - operative recheck CBC (10/20) -> hgb 11.1 AMS Fall Per RN patient is confused oriented to person only tried to get out of bed unassisted and fell -> sustained a skin tear on arm Patient was confused prior to the fall no LOC or head trauma patient remains confused orient to self only, thinks she is in a alf and wants to go home AMS could be from underlining cognitive decline worsened by narcotics and hospitalization or possibly withdraw give Ativan 1 mg IM x 1 now start CIWA protocol Hypertension Not currently on medication for HTN as an outpatient continue low sodium diet monitor BP Hypothyroidism Continue home levothyroxine 75 mcg Pulmonary fibrosis Followed by Dr. Zhang as an outpatient Not on daily medication regiment or home oxygen Leukocytosis WBC elevated today 15.0 patient afebrile CXR: Bilateral apical pleural thickening with interstitial prominence. Findings are likely secondary to emphysematous changes and scarring. No evidence of pneumonia. UA C&S requested post op dressing appears clean and dry recheck CBC at 1300 ? lab error DVT prophylaxis with SCDs, per orthopedic surgery Lovenox followed by ASA for DVT prophylaxis Plan to DC to SNF once arrangements made The exam, history, and the medical decision-making described in the above note were completed with the assistance of the mid-level provider. I reviewed and agree with the findings presented. I attest that I had a [id number] encounter with the patient on the same day, and personally performed and documented my assessment and findings in the medical record.
[2017-10-22] MEDS: Enoxaparin Inj 40 MG/0.4 ML Syringe SQ SCH (16:00)
[2017-10-22 17:54] VITALS: RESP 18
[2017-10-22 18:05] VITALS: BP 131/64; PULSE 94; O2SAT 95
[2017-10-22 18:22] VITALS: TEMP 98
--- NOTE | 2017-11-01 08:49 | P.DS ---
Date of admission: 10/18/17 12:17 Primary care physician: Lionel Mcnair Anticipated date of discharge: 10/22/17 Brief History from admission: This an 81-year-old female patient with past medical history which includes hypertension, chronic kidney disease stage 3, duodenal ulcer, orthostatic hypotension, pulmonary fibrosis and vitamin D deficiency. Patient was in her normal state of health today when she had a mechanical fall resulting in right hip pain. Imaging revealed a right hip intertrochanteric fracture. Patient report pain improved with IV pain medication. Patient offers no other complaints at this time. Patient denies nausea vomiting diarrhea constipation fevers chills cough congestion shortness of breath or chest pain. PMH: hypertension, chronic kidney disease stage 3, duodenal ulcer, orthostatic hypotension, pulmonary fibrosis and vitamin D deficiency PSxH; Cataract surgery, colonoscopy with polypectomy, EGD FMH: Colon cancer Social history: Denies current EtOH use Denies current tobacco use - Denies illicit drug use DS: Diagnosis - Discharge Diagnosis (1) Intertrochanteric fracture of right hip Status: Acute DS: Medications - Discharge Medications Prescriptions: aspirin 325 mg PO DAILY 30 Days #30 tab lorazepam [Ativan] 0.5 mg PO DAILY PRN #5 tab PRN Reason: Anxiety tramadol [Ultram] 50 mg PO Q6H PRN #60 tab PRN Reason: pain DS: Summary Hospital Course: - Assessment (1) Intertrochanteric fracture of right hip Code(s): S72.141A - Displaced intertrochanteric fracture of right femur, initial encounter for closed fracture Status: Acute Plan: Fall Right hip intertrochanteric fracture Hip X-Ray reviewed and reveals: Intertrochanteric fracture of the right hip Ankle X-Ray reviewed and reveals: No acute fracture or dislocation. Consult orthopedic surgery patient S/P Right hip treatment of intertrochanteric fracture with intramedullary nail (10/18/17) with Dr. Merino Pain medication with morphine and tramadol WBAT RLE per orthopedic surgery hgb 9.6 today down from on admission likely dilutional as well as post - operative AMS Fall Per RN patient is confused oriented to person only tried to get out of bed unassisted and fell -> sustained a skin tear on arm Patient was confused prior to the fall no LOC or head trauma back to baseline MS on day of dc Hypertension Not currently on medication for HTN as an outpatient continue low sodium diet monitor BP Hypothyroidism Continue home levothyroxine 75 mcg Pulmonary fibrosis Followed by Dr. Zhang as an outpatient Not on daily medication regiment or home oxygen - Time Spent with Patient Total time spent providing and/or coordinating discharge services: Greater than 30 minutes Exam Vital signs: nad heart reg lung cta abd s/nt ext no edema Results Procedures completed during hospitalization: S/P Right hip treatment of intertrochanteric fracture with intramedullary nail ( 10/18/17) with Dr. Merino - Impressions ITS Impressions Hip X-Ray 10/18/17 08:46 CONCLUSION: Intertrochanteric fracture of the right hip Ankle X-Ray 10/18/17 08:59 CONCLUSION: 1. No acute fracture or dislocation. Chest X-Ray 10/20/17 10:06 CONCLUSION: Bilateral apical pleural thickening with interstitial prominence. Findings are likely secondary to emphysematous changes and scarring. No evidence of pneumonia. Discharge Plan - Discharge Disposition Patient Disposition: Discharge to SNF - Discharge Condition Condition: Stable - Discharge Order Discharge Orders: Discharge Order (Routine); Ordered 10/21/17 Ordered By: Yesi Galan - Discharge Details Anticipated Discharge Date: 10/21/17 - Physicians Team Primary Care Provider: Lionel Mcnair Attending Provider: Serg Mcguire Other Providers: Dalton Merino MD ; [facility] ; [facility], [place]
== END 2017-10-22 18:34 ==
LOC: NEPE 08:19 → NEDA 12:17 → N06 17:09
PROVIDERS: ADMIT Hospitalist; ATTEND Hospitalist